=== PATIENT | male | born 1980 | race Caucasian/White ===

== ENCOUNTER 2017-03-03 12:51 | Emergency (ER) | payer MEDICARE, OTHER ==
[2017-03-03] MEDS ORDERED: MORPHINE SULFATE 4 MG/ML SYRINGE IV STA (13:28)
[2017-03-03] MEDS ORDERED: ONDANSETRON 4 MG/2 ML VIAL IVP STA (13:28)
[2017-03-03] MEDS ORDERED: PANTOPRAZOLE 40 MG/10 ML VIAL IVP STA (13:28)
[2017-03-03] MEDS ORDERED: SODIUM CHLORIDE 0.9% 500 ML IV STA (13:28)
--- NOTE | 2017-03-03 13:35 | ED ---
General Adult HPI - General Chief complaint: Abdominal Pain Stated complaint: Abd pain Time Seen by Provider: 03/03/17 12:55 Source: patient, EMS, RN notes reviewed, old records reviewed Mode of arrival: EMS - History of Present Illness Initial comments: This is a 36-year-old male here for evaluation. Patient comes in for evaluation of jaw pain, history of bowel pain history of also history of GI bleed. Patient did eat some food today and then began to have generalized abdominal pain after this happened. No nausea or vomiting. No fevers. Patient is emotional regarding this abdominal pain. - Related Data Home Medications Medication Instructions Recorded Confirmed Multivitamin [Men's Multi-Vitamin] 1 tab PO DAILY 05/23/15 03/03/17 Pantoprazole Sodium [Protonix] 40 mg PO DAILY 05/23/15 03/03/17 Levothyroxine Sodium [Synthroid] 125 mcg PO DAILY 03/03/17 03/03/17 Allergies Allergy/AdvReac Type Severity Reaction Status Date / Time morphine Allergy Dyspnea Verified 03/03/17 14:11 Review of Systems ROS Statement: Those systems with pertinent positive or pertinent negative responses have been documented in the HPI. ROS Other: All systems not noted in ROS Statement are negative. Past Medical History Past Medical History: GI Bleed, Skin Disorder Additional Past Medical History / Comment(s): SMALL EAR CANALS, GETS WAX BUILDUP. ALOPECIA. OCC. PSORIASIS, LIPS CHAPPED. MENTALLY IMPAIRED, DOWN'S SYNDROME. BLEEDING ULCER 03/2015, REQUIRED BLOOD TRANSFUSIONS. History of Any Multi-Drug Resistant Organisms: None Reported Additional Past Surgical History / Comment(s): EGD X2 Past Anesthesia/Blood Transfusion Reactions: No Reported Reaction Past Psychological History: Anxiety Smoking Status: Never smoker Past Alcohol Use History: None Reported Past Drug Use History: None Reported - Past Family History Mother Family Medical History: No Reported History General Exam General appearance: alert, in no apparent distress Head exam: Present: atraumatic, normocephalic, normal inspection Eye exam: Present: normal appearance, PERRL, EOMI. Absent: scleral icterus, conjunctival injection, periorbital swelling ENT exam: Present: normal exam, mucous membranes moist Neck exam: Present: normal inspection. Absent: tenderness, meningismus, lymphadenopathy Respiratory exam: Present: normal lung sounds bilaterally. Absent: respiratory distress, wheezes, rales, rhonchi, stridor Cardiovascular Exam: Present: regular rate, normal rhythm, normal heart sounds. Absent: systolic murmur, diastolic murmur, rubs, gallop, clicks GI/Abdominal exam: Present: soft, normal bowel sounds. Absent: distended, tenderness, guarding, rebound, rigid Extremities exam: Present: normal inspection, full ROM, normal capillary refill. Absent: tenderness, pedal edema, joint swelling, calf tenderness Back exam: Present: normal inspection Neurological exam: Present: alert, oriented X3, CN II-XII intact Psychiatric exam: Present: normal affect, normal mood Skin exam: Present: warm, dry, intact, normal color. Absent: rash Course Vital Signs 03/03/17 13:00 Temperature 98 F Pulse Rate 70 Respiratory 16 Rate Blood Pressure 129/70 O2 Sat by Pulse 99 Oximetry - Reevaluation(s) Reevaluation #1: 03/03/17 13:35 [place] states he did have follow-up for his prior EGD and upper GI today which she did not make it to Reevaluation #2: 03/03/17 14:24 Patient is in no acute distress, pain is improved Medical Decision Making - Medical Decision Making 28 male year for vaginal Doppler a. No acute abdominal pain this time his symptoms are resolved, patient will continue follow-up on outpatient basis regarding ulcer disease - Lab Data Result diagrams: 03/03/17 13:45 03/03/17 13:45 Lab Results 03/03/17 03/03/17 Range/Units 13:45 13:45 WBC 10.5 (3.8-10.6) k/uL RBC 3.76 L (4.30-5.90) m/uL Hgb 12.8 L (13.0-17.5) gm/dL Hct 36.9 L (39.0-53.0) % MCV 98.0 (80.0-100.0) fL MCH 34.0 (25.0-35.0) pg MCHC 34.7 (31.0-37.0) g/dL RDW 15.0 (11.5-15.5) % Plt Count 383 (150-450) k/uL Neutrophils % 89 % Lymphocytes % 5 % Monocytes % 3 % Eosinophils % 1 % Basophils % 1 % Neutrophils # 9.4 H (1.3-7.7) k/uL Lymphocytes # 0.5 L (1.0-4.8) k/uL Monocytes # 0.3 (0-1.0) k/uL Eosinophils # 0.1 (0-0.7) k/uL Basophils # 0.2 (0-0.2) k/uL Sodium 140 (137-145) mmol/L Potassium 4.2 (3.5-5.1) mmol/L Chloride 108 H (98-107) mmol/L Carbon Dioxide 23 (22-30) mmol/L Anion Gap 9 mmol/L BUN 13 (9-20) mg/dL Creatinine 1.10 (0.66-1.25) mg/dL Est GFR (MDRD) Af Amer >60 (>60 ml/min/1.73 sqM) Est GFR (MDRD) Non-Af >60 (>60 ml/min/1.73 sqM) Glucose 139 H (74-99) mg/dL Calcium 8.8 (8.4-10.2) mg/dL Total Bilirubin 0.2 (0.2-1.3) mg/dL AST 26 (17-59) U/L ALT 29 (21-72) U/L Alkaline Phosphatase 53 (38-126) U/L Total Protein 5.6 L (6.3-8.2) g/dL Albumin 3.1 L (3.5-5.0) g/dL Amylase 53 (30-110) U/L Lipase 261 (23-300) U/L Disposition Clinical Impression: Abdominal pain Disposition: HOME SELF-CARE Condition: Good Instructions: Abdominal Pain (ED) Referrals: None,Stated [Primary Care Provider] - 1-2 days
[2017-03-03 14:03] LABS: Basophils # (A) 0.2 k/uL (0-0.2); Basophils % (A) 1 %; CHCM 35.9; Eosinophils # (A) 0.1 k/uL (0-0.7); Eosinophils % (A) 1 %; HCT 36.9 % (39.0-53.0); HDW 3.01; HGB 12.8 gm/dL (13.0-17.5); Luc # (Auto) 0.12; Luc % (Auto) 1; Lymphocytes # (A) 0.5 k/uL (1.0-4.8); Lymphocytes % (A) 5 %; MCHC 34.7 g/dL (31.0-37.0); Mean Platelet Volume 7.7; Monocytes # (A) 0.3 k/uL (0-1.0); Monocytes % (A) 3 %; Neutrophils # (A) 9.4 k/uL (1.3-7.7); Neutrophils % (A) 89 %; RBC 3.76 m/uL (4.30-5.90); WBC 10.5 k/uL (3.8-10.6); WBC (Perox) 11.33
[2017-03-03 14:13] LABS: ALT 29 U/L (21-72); AST 26 U/L (17-59); Alkaline Phosphatase 53 U/L (38-126); Amylase 53 U/L (30-110); Anion Gap 9 mmol/L; Blood Urea Nitrogen 13 mg/dL (9-20); Calcium 8.8 mg/dL (8.4-10.2); Carbon Dioxide 23 mmol/L (22-30); Chloride 108 mmol/L (98-107); Glucose 139 mg/dL (74-99); Non-African American GFR(MDRD) >60 (>60 ml/min/1.73 sqM); Potassium 4.2 mmol/L (3.5-5.1); Sodium 140 mmol/L (137-145); Total Bilirubin 0.2 mg/dL (0.2-1.3); Total Protein 5.6 g/dL (6.3-8.2)
[2017-03-03 14:41] VITALS: BP 136/80; PULSE 84; RESP 18; TEMP 98.7
== END 2017-03-03 14:41 | disposition home or self-care (01) ==
LOC: EC 12:51
DX: R10.84 Generalized abdominal pain (principal); Z87.19 Personal history of other diseases of the digestive system; Z88.5 Allergy status to narcotic agent; Z98.890 Other specified postprocedural states; Z79.899 Other long term (current) drug therapy
CPT/HCPCS: 36415; 80053; 82150; 83690; 85025; 99284; 96374; 96375; 96361; J2405; C9113

== ENCOUNTER 2017-03-03 16:30 | Inpatient (IN) | payer MEDICARE, OTHER ==
[2017-03-03 17:29] VITALS: BMI 18.6
[2017-03-03] MEDS ORDERED: ONDANSETRON 4 MG/2 ML VIAL IVP PRN (18:08)
[2017-03-03] MEDS ORDERED: IOHEXOL 350 MG/ML 25 ML BOTTLE (ORAL USE) PO PRN (18:10)
[2017-03-03] MEDS: SODIUM CHLORIDE 0.9% 1,000 ML IV SCH (18:22)
--- NOTE | 2017-03-03 18:49 | XR ---
EXAMINATION TYPE: XR abdomen 1V DATE OF EXAM: 03/03/2017 COMPARISON: NONE HISTORY: Nausea and vomiting TECHNIQUE: 2 views FINDINGS: Bowel gas pattern is normal. There is no sign of intestinal obstruction or pneumoperitoneum . Fecal pattern is normal. There is no evidence of a mass. Lung bases appear clear. There are no path ologic calcifications over the kidneys. IMPRESSION: Nonacute abdomen.
[2017-03-03] MEDS ORDERED: IOHEXOL 350 MG/ML 25 ML BOTTLE (ORAL USE) PO STA (19:58)
--- NOTE | 2017-03-03 20:55 | CT ---
EXAMINATION TYPE: CT abdomen pelvis wo con DATE OF EXAM: 03/03/2017 COMPARISON: NONE HISTORY: Vomiting. R/O perforated bowel. CT DLP: 249.8 mGycm Automated exposure control for dose reduction was used. TECHNIQUE: Helical acquisition of images was performed from the lung bases through the pelvis. FINDINGS: The lung bases are clear. There is no pleural effusion. The liver spleen pancreas appear normal. Bile ducts are not dilated. Gallbladder appears normal. Kidneys have normal size and contour. There is no hydronephrosis. There is no retroperitoneal adenopa thy. There is no adrenal mass. Bladder distends smoothly. There is evidence of mild free fluid in the pelvis. There is fluid in the pelvis that appears to be i n the cecum which is in contact with the urinary bladder on the right side. There are dilated loops o f small bowel in the mid abdomen that measure up to 4 cm. There is intestinal gas extending down to t he rectum. The contrast does not reach unfortunately the right colon.. IMPRESSION: THERE ARE DILATED FLUID-FILLED LOOPS OF AIR AND FLUID AND CONTRAST SMALL BOWEL CONSISTENT WITH A PART IAL MECHANICAL SMALL BOWEL OBSTRUCTION. NO EVIDENCE OF A PNEUMOPERITONEUM. THERE ARE CYSTIC APPEARING MASSES IN THE PELVIS THAT COULD BE ADDITIONAL DILATED LOOPS OR FLUID-FILLED CECUM IN THE PELVIS. THERE IS MILD FREE FLUID IN THE PELVIS.
[2017-03-04] MEDS: SODIUM CHLORIDE 0.9% 1,000 ML IV SCH ×3 (06:19→23:34)
[2017-03-04] MEDS: PANTOPRAZOLE 40 MG/10 ML VIAL IVP SCH (08:52)
--- NOTE | 2017-03-04 14:09 | P.HPIM ---
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 Yesterday, patient presented to the emergency room with persistent nausea and vomiting that started yesterday morning. He was having a lot of abdominal pain. He was evaluated in the emergency room and was discharged home. He came later this afternoon to my office and was having severe nausea and ongoing vomiting. I had to give him IM Zofran in my office and directly admitted to the hospital for further treatment. He underwent a computed tomography scan of the abdomen showing partial small bowel obstruction. He remained nothing by mouth and was treated symptomatically since yesterday. His overall condition improved significantly. Vomiting has stopped and his abdominal pain has resolved. Lab work in the emergency room was essentially unremarkable. I did repeat the lactic acid on presentation that was also normal. General surgery well consult. Review of Systems Review of system: 14 points review of systems were obtained and were negative except to what were mentioned in the HPI. Past Medical History Past Medical History: GI Bleed, Skin Disorder Additional Past Medical History / Comment(s): SMALL EAR CANALS, GETS WAX BUILDUP. ALOPECIA. OCC. PSORIASIS, LIPS CHAPPED. MENTALLY IMPAIRED, DOWN'S SYNDROME. BLEEDING ULCER 03/2015, REQUIRED BLOOD TRANSFUSIONS. HYPOTHYROIDISM History of Any Multi-Drug Resistant Organisms: None Reported Additional Past Surgical History / Comment(s): EGD X2 Past Anesthesia/Blood Transfusion Reactions: No Reported Reaction Past Psychological History: Anxiety Additional Psychological History / Comment(s): RECENT ANXIETY R/T OF NEIGHBOR. "HIGH-FUNCTIONING" W/ DOWN'S SYNDROME. Smoking Status: Never smoker Past Alcohol Use History: None Reported Past Drug Use History: None Reported - Past Family History Mother Family Medical History: No Reported History Medications and Allergies Home Medications Medication Instructions Recorded Confirmed Type Pantoprazole Sodium [Protonix] 40 mg PO BID 05/23/15 03/03/17 History Levothyroxine Sodium [Synthroid] 125 mcg PO DAILY 03/03/17 03/03/17 History Multivitamins, Thera [Multivitamin 1 tab PO DAILY 03/03/17 03/03/17 History (formulary)] Allergies Allergy/AdvReac Type Severity Reaction Status Date / Time morphine Allergy Anaphylaxis Verified 03/03/17 17:14 Physical Exam Vitals: Vital Signs Temp Pulse Resp BP Pulse Ox 03/04/17 07:00 97.7 F 65 18 106/62 96 03/03/17 23:51 16 03/03/17 23:00 97.1 F L 73 16 115/66 96 03/03/17 17:08 98.3 F 90 16 158/80 100 Intake and Output 03/03/17 03/04/17 03/04/17 22:59 06:59 14:59 Intake Total 10 Output Total 350 Balance -340 Intake: IV 10 Invasive Line 1 10 Output: Emesis 350 Other: Voiding Method Toilet # Voids 3 3 1 Weight 54 kg General: The patient is awake and alert, in no distress Eye: there is normal conjunctiva bilaterally. Neck: The neck is supple, there is no JVD. Cardiovascular: Normal S1-S2, no S3-S4, no murmurs. Respiratory: Lungs clear to auscultation bilaterally Gastrointestinal: Abdomen is soft, nontender Musculoskeletal: There is no pedal edema. Neurological:. Speech is normal. Skin: Skin is warm and dry Thrombosis Risk Factor Assmnt - Choose All That Apply Any of the Below Risk Factors Present?: No Other Risk Factors: No Other congenital or acquired thrombophilia - If yes, enter type in comment: No Thrombosis Risk Factor Assessment Level: Very Low Risk Assessment and Plan Plan: 1. Partial small bowel obstruction noted on computed tomography scan of the abdomen 2. 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 History of peptic ulcer disease maintained on Protonix 4. Underlying Down syndrome Today, I reviewed his medication list and labwork result. Patient's overall clinical condition has improved significantly since yesterday. I would start clear liquid and monitor response closely. We will order a repeat abdominal x- ray for today even though the original one was unremarkable. We'll continue to monitor closely. His caregiver at bedside was updated about his clinical condition.
--- NOTE | 2017-03-04 14:46 | XR ---
EXAMINATION TYPE: XR abdomen 1V DATE OF EXAM: 03/04/2017 COMPARISON: NONE INDICATION: Follow-up small bowel obstruction. These abnormal TECHNIQUE: Single view abdomen FINDINGS: There are some scattered air-fluid levels within small bowel loops within the pelvis. Contrast throug h the colon which appears to have a normal caliber and position. No mass effect is evident. Psoas margins are normal. No organomegaly is present. IMPRESSION: 1. Findings more likely related to ileus. Contrast passes through small bowel loops in the colon. No dilated small bowel loops or differential air-fluid levels are present.
[2017-03-04] MEDS: HEPARIN SODIUM,PORCINE 5,000 UNIT/ML 1 ML VIAL SQ SCH (20:35)
[2017-03-05] MEDS: LEVOTHYROXINE 125 MCG TAB PO SCH (06:23)
[2017-03-05] MEDS: SODIUM CHLORIDE 0.9% 1,000 ML IV SCH (07:53)
[2017-03-05] MEDS: PANTOPRAZOLE 40 MG/10 ML VIAL IVP SCH (07:53)
[2017-03-05] MEDS: HEPARIN SODIUM,PORCINE 5,000 UNIT/ML 1 ML VIAL SQ SCH ×2 (07:53→21:44)
[2017-03-05 08:11] LABS: ALT 28 U/L (21-72); AST 23 U/L (17-59); Alkaline Phosphatase 36 U/L (38-126); Anion Gap 5 mmol/L; Blood Urea Nitrogen 8 mg/dL (9-20); Calcium 8.1 mg/dL (8.4-10.2); Carbon Dioxide 27 mmol/L (22-30); Chloride 108 mmol/L (98-107); Glucose 80 mg/dL (74-99); Non-African American GFR(MDRD) >60 (>60 ml/min/1.73 sqM); Potassium 4.2 mmol/L (3.5-5.1); Sodium 140 mmol/L (137-145); Total Bilirubin 0.4 mg/dL (0.2-1.3); Total Protein 4.8 g/dL (6.3-8.2)
[2017-03-05 08:15] LABS: Basophils # (A) 0.1 k/uL (0-0.2); Basophils % (A) 1 %; CH 33.2; CHCM 33.9; Eosinophils # (A) 0.1 k/uL (0-0.7); Eosinophils % (A) 1 %; HCT 35.9 % (39.0-53.0); HDW 3.23; HGB 12.5 gm/dL (13.0-17.5); Luc # (Auto) 0.11; Luc % (Auto) 2; Lymphocytes # (A) 0.6 k/uL (1.0-4.8); Lymphocytes % (A) 12 %; MCH 34.2 pg (25.0-35.0); MCHC 34.8 g/dL (31.0-37.0); MCV 98.3 fL (80.0-100.0); Mean Platelet Volume 7.8; Monocytes # (A) 0.3 k/uL (0-1.0); Monocytes % (A) 5 %; Neutrophils % (A) 78 %; RBC 3.65 m/uL (4.30-5.90); RDW 14.3 % (11.5-15.5); WBC 5.2 k/uL (3.8-10.6); WBC (Perox) 5.41
--- NOTE | 2017-03-05 11:37 | P.PN ---
Subjective Patient is doing significantly better today. He is tolerating liquid diet with no difficulty. He had a small bowel movement yesterday. Objective - Vital Signs Vital signs: Vital Signs Temp 97.2 F L 03/05/17 07:00 Pulse 71 03/05/17 07:00 Resp 16 03/05/17 07:00 BP 102/70 03/05/17 07:00 Pulse Ox 96 03/05/17 07:00 Intake & Output 03/04/17 03/05/17 03/05/17 18:59 06:59 18:59 Other: Voiding Method Toilet Toilet # Voids 4 3 1 # Bowel Movements 1 3 1 - Exam General: The patient is awake and alert, in no distress Eye: there is normal conjunctiva bilaterally. Neck: The neck is supple, there is no JVD. Cardiovascular: Normal S1-S2, no S3-S4, no murmurs. Respiratory: Lungs clear to auscultation bilaterally Gastrointestinal: Abdomen is soft, nontender Musculoskeletal: There is no pedal edema. Skin: Skin is warm and dry - Labs CBC & Chem 7: 03/05/17 07:17 03/05/17 07:17 Labs: Abnormal Lab Results - Last 24 Hours (Table) 03/05/17 03/05/17 Range/Units 07:17 07:17 RBC 3.65 L (4.30-5.90) m/uL Hgb 12.5 L (13.0-17.5) gm/dL Hct 35.9 L (39.0-53.0) % Lymphocytes # 0.6 L (1.0-4.8) k/uL Chloride 108 H (98-107) mmol/L BUN 8 L (9-20) mg/dL Calcium 8.1 L (8.4-10.2) mg/dL Alkaline Phosphatase 36 L (38-126) U/L Total Protein 4.8 L (6.3-8.2) g/dL Albumin 2.5 L (3.5-5.0) g/dL Assessment and Plan Plan: 1. Partial small bowel obstruction noted on computed tomography scan of the abdomen 2. 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 History of peptic ulcer disease maintained on Protonix 4. Underlying Down syndrome Today, I reviewed his medication list and labwork result. Patient's overall clinical condition has improved significantly since yesterday. Advance diet to regular. Anticipate discharge home tomorrow.
[2017-03-05] MEDS: MULTIVITAMINS, THERA 1 EACH TAB PO SCH (12:43)
--- NOTE | 2017-03-05 13:16 | P.GSCN ---
History of Present Illness Consult date: 03/05/17 Reason for Consult: Nausea vomiting abdominal pain History of present illness: Mr. Estrada is a 36-year-old male who was recently seen for concern for ileus versus small bowel obstruction. Patient has known peptic ulcer disease and duodenal stricture. He returned to the hospital with complaints of nausea and vomiting which have now resolved. Patient stated he had flatus and denies recent nausea vomiting overnight. He is tolerating a clear liquid diet. Denies any abdominal pain. Review of Systems All systems: negative Past Medical History Past Medical History: GI Bleed, Skin Disorder Additional Past Medical History / Comment(s): SMALL EAR CANALS, GETS WAX BUILDUP. ALOPECIA. OCC. PSORIASIS, LIPS CHAPPED. MENTALLY IMPAIRED, DOWN'S SYNDROME. BLEEDING ULCER 03/2015, REQUIRED BLOOD TRANSFUSIONS. HYPOTHYROIDISM History of Any Multi-Drug Resistant Organisms: None Reported Additional Past Surgical History / Comment(s): EGD X2 Past Anesthesia/Blood Transfusion Reactions: No Reported Reaction Past Psychological History: Anxiety Additional Psychological History / Comment(s): RECENT ANXIETY R/T OF NEIGHBOR. "HIGH-FUNCTIONING" W/ DOWN'S SYNDROME. Smoking Status: Never smoker Past Alcohol Use History: None Reported Past Drug Use History: None Reported - Past Family History Mother Family Medical History: No Reported History Medications and Allergies Home Medications Medication Instructions Recorded Confirmed Type Pantoprazole Sodium [Protonix] 40 mg PO BID 05/23/15 03/03/17 History Levothyroxine Sodium [Synthroid] 125 mcg PO DAILY 03/03/17 03/03/17 History Multivitamins, Thera [Multivitamin 1 tab PO DAILY 03/03/17 03/03/17 History (formulary)] Allergies Allergy/AdvReac Type Severity Reaction Status Date / Time morphine Allergy Anaphylaxis Verified 03/03/17 17:14 Surgical - Exam Osteopathic Statement: *. No significant issues noted on an osteopathic structural exam other than those noted in the History and Physical/Consult. Vital Signs Temp Pulse Resp BP Pulse Ox 98.3 F 90 16 158/80 100 03/03/17 17:08 03/03/17 17:08 03/03/17 17:08 03/03/17 17:08 03/03/17 17:08 - General well developed, well nourished - ENT normal pinna - Respiratory normal expansion, normal respiratory effort - Cardiovascular Rhythm: regular - Abdomen Abdomen: soft, non tender - Psychiatric oriented to time, oriented to person, oriented to place Results - Labs 03/05/17 07:17 03/05/17 07:17 Abnormal Lab Results - Last 24 Hours (Table) 03/05/17 03/05/17 Range/Units 07:17 07:17 RBC 3.65 L (4.30-5.90) m/uL Hgb 12.5 L (13.0-17.5) gm/dL Hct 35.9 L (39.0-53.0) % Lymphocytes # 0.6 L (1.0-4.8) k/uL Chloride 108 H (98-107) mmol/L BUN 8 L (9-20) mg/dL Calcium 8.1 L (8.4-10.2) mg/dL Alkaline Phosphatase 36 L (38-126) U/L Total Protein 4.8 L (6.3-8.2) g/dL Albumin 2.5 L (3.5-5.0) g/dL Diabetes panel 03/05/17 Range/Units 07:17 Sodium 140 (137-145) mmol/L Potassium 4.2 (3.5-5.1) mmol/L Chloride 108 H (98-107) mmol/L Carbon Dioxide 27 (22-30) mmol/L BUN 8 L (9-20) mg/dL Creatinine 0.97 (0.66-1.25) mg/dL Glucose 80 (74-99) mg/dL Calcium 8.1 L (8.4-10.2) mg/dL AST 23 (17-59) U/L ALT 28 (21-72) U/L Alkaline Phosphatase 36 L (38-126) U/L Total Protein 4.8 L (6.3-8.2) g/dL Albumin 2.5 L (3.5-5.0) g/dL Calcium panel 03/05/17 Range/Units 07:17 Calcium 8.1 L (8.4-10.2) mg/dL Albumin 2.5 L (3.5-5.0) g/dL Pituitary panel 03/05/17 Range/Units 07:17 Sodium 140 (137-145) mmol/L Potassium 4.2 (3.5-5.1) mmol/L Chloride 108 H (98-107) mmol/L Carbon Dioxide 27 (22-30) mmol/L BUN 8 L (9-20) mg/dL Creatinine 0.97 (0.66-1.25) mg/dL Glucose 80 (74-99) mg/dL Calcium 8.1 L (8.4-10.2) mg/dL Adrenal panel 03/05/17 Range/Units 07:17 Sodium 140 (137-145) mmol/L Potassium 4.2 (3.5-5.1) mmol/L Chloride 108 H (98-107) mmol/L Carbon Dioxide 27 (22-30) mmol/L BUN 8 L (9-20) mg/dL Creatinine 0.97 (0.66-1.25) mg/dL Glucose 80 (74-99) mg/dL Calcium 8.1 L (8.4-10.2) mg/dL Total Bilirubin 0.4 (0.2-1.3) mg/dL AST 23 (17-59) U/L ALT 28 (21-72) U/L Alkaline Phosphatase 36 L (38-126) U/L Total Protein 4.8 L (6.3-8.2) g/dL Albumin 2.5 L (3.5-5.0) g/dL Assessment and Plan (1) Small bowel obstruction Status: Acute (2) Abdominal pain Status: Acute Plan: Ileus appears to be resolved. Continue to advance diet as tolerated. Patient will likely need a repeat endoscopy and can follow up with Dr. Madrid as an outpatient
[2017-03-06] MEDS: LEVOTHYROXINE 125 MCG TAB PO SCH (06:22)
[2017-03-06] MEDS ORDERED: PANTOPRAZOLE 40 MG TABLET PO SCH (07:30)
[2017-03-06 07:35] VITALS: BP 114/70; PULSE 82; RESP 16; TEMP 97.2
[2017-03-06] MEDS: HEPARIN SODIUM,PORCINE 5,000 UNIT/ML 1 ML VIAL SQ SCH (08:23)
[2017-03-06 08:54] LABS: Basophils # (A) 0.1 k/uL (0-0.2); Basophils % (A) 1 %; CH 34.5; CHCM 34.8; Eosinophils # (A) 0.2 k/uL (0-0.7); Eosinophils % (A) 2 %; HCT 38.8 % (39.0-53.0); HDW 3.33; HGB 13.2 gm/dL (13.0-17.5); Luc # (Auto) 0.12; Luc % (Auto) 2; Lymphocytes # (A) 0.9 k/uL (1.0-4.8); Lymphocytes % (A) 12 %; MCH 33.7 pg (25.0-35.0); MCHC 33.9 g/dL (31.0-37.0); MCV 99.5 fL (80.0-100.0); Macrocytosis Slight; Mean Platelet Volume 8.2; Monocytes # (A) 0.4 k/uL (0-1.0); Monocytes % (A) 6 %; Neutrophils # (A) 5.7 k/uL (1.3-7.7); Neutrophils % (A) 78 %; RDW 14.6 % (11.5-15.5); WBC 7.3 k/uL (3.8-10.6); WBC (Perox) 7.32
[2017-03-06 09:30] LABS: ALT 30 U/L (21-72); AST 24 U/L (17-59); Alkaline Phosphatase 49 U/L (38-126); Anion Gap 8 mmol/L; Blood Urea Nitrogen 9 mg/dL (9-20); Calcium 8.6 mg/dL (8.4-10.2); Carbon Dioxide 31 mmol/L (22-30); Chloride 102 mmol/L (98-107); Glucose 86 mg/dL (74-99); Non-African American GFR(MDRD) >60 (>60 ml/min/1.73 sqM); Potassium 4.1 mmol/L (3.5-5.1); Sodium 141 mmol/L (137-145); Total Bilirubin 0.3 mg/dL (0.2-1.3); Total Protein 5.6 g/dL (6.3-8.2)
[2017-03-06] MEDS: MULTIVITAMINS, THERA 1 EACH TAB PO SCH (12:09)
--- NOTE | 2017-03-06 13:43 | P.DS ---
Providers Date of admission: 03/03/17 16:34 Expected date of discharge: 03/06/17 Attending physician: Mamta Alfaro Consults: 03/03/17 22:11 Consult Physician Routine Consulting Provider: Marques Madrid Consult Reason/Comments: small bowel obstruction Do you want consulting provider notified?: Already Contacted [facility] Course: 1. Partial small bowel obstruction noted on computed tomography scan of the abdomen, resolved. Patient is able to tolerate regular diet. He is having bowel movement. 2. 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 History of peptic ulcer disease maintained on Protonix 4. Underlying Down syndrome Patient will be discharged home in a stable condition. He will follow-up with me in the office in one week. Plan - Discharge Summary New Discharge Prescriptions: Continue Levothyroxine Sodium [Synthroid] 125 mcg PO DAILY Multivitamins, Thera [Multivitamin (formulary)] 1 tab PO DAILY Changed Pantoprazole Sodium [Protonix] 40 mg PO DAILY #0 Discharge Medication List Levothyroxine Sodium [Synthroid] 125 mcg PO DAILY 03/03/17 [History] Multivitamins, Thera [Multivitamin (formulary)] 1 tab PO DAILY 03/03/17 [History ] Pantoprazole Sodium [Protonix] 40 mg PO DAILY #0 03/06/17 [Rx] Patient Instructions/Handouts: Bowel Obstruction (DC) Discharge Disposition: HOME SELF-CARE
== END 2017-03-06 14:06 | disposition home or self-care (01) | DRG 390 ==
LOC: 4MS4W 16:34 → EEVIPCON 16:34
PROVIDERS: ADMIT Internal Medicine; ATTEND Internal Medicine
DX: K56.60 Unspecified intestinal obstruction (principal); K27.9 Peptic ulcer, site unspecified, unspecified as acute or chronic, without hemorrhage or perforation; E03.9 Hypothyroidism, unspecified; Z88.5 Allergy status to narcotic agent; Q90.9 Down syndrome, unspecified; Z79.899 Other long term (current) drug therapy
CPT/HCPCS: 74000; 74176; 80053; 83605; 85025

== ENCOUNTER → 2025-01-17 | Outpatient (CLI) | payer MEDICARE, OTHER ==
[2025-01-17 15:17] LABS: ALT 19 U/L (10-49); AST 28 U/L (14-35)
== END | disposition home or self-care (01) ==
LOC: LABWHC1 08:55
PROVIDERS: ATTEND Student in an Organized Health Care Education/Training Program
DX: B35.1 Tinea unguium (principal)
CPT/HCPCS: 36415; 84450; 84460